=== PATIENT | female | born 1990 | race Caucasian/White ===

== ENCOUNTER 2018-05-23 11:01 | Emergency (ER) | payer BC ==
[~2018-05-23] VITALS: Ht 157.5 cm; Wt 54.9 kg
[2018-05-23 11:10] VITALS: BP_SYST 133
[2018-05-23 14:00] VITALS: BP_SYST 111
== END 2018-05-23 14:00 | disposition home or self-care (01) ==
LOC: SED 11:01
DX: O20.0 Threatened abortion (principal); R03.0 Elevated blood-pressure reading, without diagnosis of hypertension; Z3A.14 14 weeks gestation of pregnancy
CPT/HCPCS: 36415; 76805-TC; 84702-TC; 86901; 99284